=== PATIENT | male | born 1970 | race African-American/Black ===

== ENCOUNTER 2019-01-28 08:42 | Emergency (ER) | payer MEDICAID ==
[2019-01-28] MEDS ORDERED: ASPIRIN 81 MG TABLET, CHEWABLE PO ONE (08:57)
--- NOTE | 2019-01-28 09:19 | RADIOLOGY REPORT (SQ) ---
EXAM DESCRIPTION: CHEST SINGLE VIEW COMPLETED DATE/TIME: 01/28/2019 9:09 am REASON FOR STUDY: cp COMPARISON: 08/24/2014 EXAM PARAMETERS: NUMBER OF VIEWS: One view. TECHNIQUE: Single frontal radiographic view of the chest acquired. RADIATION DOSE: NA LIMITATIONS: None. FINDINGS: LUNGS AND PLEURA: No opacities, masses or pneumothorax. No pleural effusion. MEDIASTINUM AND HILAR STRUCTURES: No masses. Contour normal. HEART AND VASCULAR STRUCTURES: Heart normal in size. Normal vasculature. BONES: No acute findings. HARDWARE: None in the chest. OTHER: No other significant finding. IMPRESSION: NO ACUTE RADIOGRAPHIC FINDING IN THE CHEST. TECHNICAL DOCUMENTATION: JOB ID: [id number] [employer]- All Rights Reserved Reading location - IP/workstation name: [email or web address]
[2019-01-28 09:25] LABS: ABSOLUTE BASOPHILS # (AUTO) 0.1 10^3/uL (0.0-0.2); ABSOLUTE EOSINOPHILS # (AUTO) 0.1 10^3/uL (0.0-0.6); ABSOLUTE LYMPHOCYTES (AUTO) 1.7 10^3/uL (0.5-4.7); ABSOLUTE MONOCYTES (AUTO) 0.7 10^3/uL (0.1-1.4); ABSOLUTE NEUT (AUTO) 3.2 10^3/uL (1.7-8.2); EOSINOPHILS % (AUTO) 1.2 % (0-6); HEMATOCRIT 44.3 % (37.9-51.0); HEMOGLOBIN 15.1 g/dL (13.5-17.0); LYMPHOCYTES % (AUTO) 29.9 % (13-45); MEAN CORPUSCULAR HEMOGLOBIN 32.8 pg (27.0-33.4); MEAN CORPUSCULAR HGB CONC 34.2 g/dL (32.0-36.0); MEAN CORPUSCULAR VOLUME 96 fl (80-97); MONOCYTES % (AUTO) 12.3 % (3-13); PLATELET COUNT 255 10^3/uL (150-450); RED BLOOD COUNT 4.61 10^6/uL (4.35-5.55); RED CELL DISTRIBUTION WIDTH 14.6 % (11.5-14.0); SEGMENTED NEUTROPHILS % (AUTO) 55.6 % (42-78); TOTAL CELLS COUNTED % (AUTO) 100 %; WHITE BLOOD COUNT 5.8 10^3/uL (4.0-10.5)
[2019-01-28 09:45] LABS: ALANINE AMINOTRANSFERASE 37 U/L (21-72); ALBUMIN 4.1 g/dL (3.5-5.0); ALKALINE PHOSPHATASE 103 U/L (38-126); ANION GAP 9 (5-19); ASPARTATE AMINO TRANSFERASE 50 U/L (17-59); BILIRUBIN,DIRECT 0.3 mg/dL (0.0-0.4); BILIRUBIN,TOTAL 0.3 mg/dL (0.2-1.3); BLOOD UREA NITROGEN 12 mg/dL (7-20); CALCIUM 9.7 mg/dL (8.4-10.2); CARBON DIOXIDE 22 mmol/L (22-30); CHLORIDE 110 mmol/L (98-107); CREATINE KINASE 489 U/L (55-170); GLUCOSE 79 mg/dL (75-110); POTASSIUM 4.6 mmol/L (3.6-5.0); SODIUM 141.4 mmol/L (137-145); TOTAL PROTEIN 7.5 g/dL (6.3-8.2)
[2019-01-28 09:57] LABS: CREATINE KINASE MB 1.81 ng/mL (<4.55)
[2019-01-28 09:58] LABS: TROPONIN I < 0.012 ng/mL
--- NOTE | 2019-01-28 10:09 | ER Document Report ---
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 Patient stated it started last night when he felt as if his heart was racing. He takes amiodarone and carvedilol. The patient did not take them until this morning before coming in. He stated he felt a flutter in his chest but no chest pain or shortness of breath no dizziness no diaphoresis no fever no chills. Complains of a fluttering in the chest. TRAVEL OUTSIDE OF THE [place] IN LAST 30 DAYS: No - Related Data Allergies/Adverse Reactions: No Known Allergies Allergy (Verified 01/28/19 08:47) Past Medical History - Social History Smoking Status: Unknown if Ever Smoked Family History: Reviewed & Not Pertinent Patient has suicidal ideation: No Patient has homicidal ideation: No Renal/ Medical History: Denies: Hx Peritoneal Dialysis Review of Systems - Review of Systems Constitutional: denies: Chills, Fever Cardiovascular: Palpitations. denies: Chest pain, Dyspnea Respiratory: denies: Hurts to breathe, Short of breath Neurological/Psychological: denies: Headaches -: Yes All other systems reviewed and negative Physical Exam - Vital signs Vitals: Temp 98.7 F 01/28/19 09:08 - Notes Notes: GENERAL_APPEARANCE: well_nourished, alert, cooperative, no_acute_distress, no_obvious_discomfort. VITALS: reviewed, see vital signs table. HEAD: no_swelling\tenderness on the head. EYES: conjunctiva_clear. NOSE: no_nasal_discharge. MOUTH: (-)decreased moisture. THROAT: no_tonsilar_inflammation, no_airway_obstruction. no_lymphadenopathy NECK: supple, no_neck_tenderness, (-)thyromegaly. BACK: no_back_tenderness. CHEST_WALL: no_chest_tenderness. LUNGS: no_wheezing, no_rales, no_rhonchi, (-)accessory muscle use, good air exchange bilateral. HEART: normal_rate, normal_rhythm, normal_S1, normal_S2, (-)S3, (-)S4, no_murmur, no_rub. ABDOMEN: normal_BS, soft, no_abd_tenderness, (-)guarding, (-)rebound, no_organomegaly, no_abd_masses. EXTREMITIES: good pulses in all_extremities, no_swelling\tenderness in the extremities, no_edema. SKIN: warm, dry, good_color, no_rash. MENTAL_STATUS: speech_clear, oriented_X_3, normal_affect, responds_appropriately to questions. Course - Re-evaluation Re-evalutation: 01/28/19 10:07 Patient has a history of WPW and comes in complaining of palpitations. Patient's heart rate has been in the 80s here. We have been watching him on the monitor. Twelve-lead EKG has been in the 80s his playground monitor for several hours have been in the 80s. He took his carvedilol and amiodarone this morning before he came in. Likely this will continue to stabilize this. He has had no runs of any tachyarrhythmia. His work appears been negative. I think he is safe for discharge home. Complaining of chest pain consistent with ischemic chest pain he is complaining of palpitations and was concerned about rapid heart rate due to his history. - Vital Signs Vital signs: Temp Pulse Resp BP Pulse Ox 98.7 F 01/28/19 09:08 - Laboratory Result Diagrams: 01/28/19 09:00 01/28/19 09:00 Laboratory results interpreted by ny: 01/28/19 01/28/19 09:00 09:00 RDW 14.6 H Chloride 110 H Creatine Kinase 489 H - Diagnostic Test Radiology reviewed: Reports reviewed Radiology results interpreted by ny: 01/28/19 10:07 Chest X-Ray 01/28/19 08:57 IMPRESSION: NO ACUTE RADIOGRAPHIC FINDING IN THE CHEST. - EKG Interpretation by Tn EKG shows normal: Sinus rhythm Rate: Normal - Rate of 80s Rhythm: NSR When compared to previous EKG there are: No significant change Discharge - Discharge Clinical Impression: Palpitations, WPW (Gadrs-Uezgjnxsq-Trrtz syndrome) Condition: Good Disposition: HOME, SELF-CARE Instructions: Palpitations (Irregular or Rapid Heartrate) (OM) Additional Instructions: Please follow-up with your doctor [facility]
[2019-01-28 10:28] VITALS: BP 134/91
--- NOTE | 2019-01-28 16:19 | EKG REPORT ---
SEVERITY:- ABNORMAL ECG - SINUS RHYTHM VENT PREEXCITATION, LEFT ACCESSORY PATHWAY : Confirmed by: Javier Wade MD 28-Jan-2019 16:19:14
== END 2019-01-28 10:29 | disposition home or self-care (01) ==
LOC: ER 08:42
DX: R00.2 Palpitations (principal); I45.6 Pre-excitation syndrome; R07.9 Chest pain, unspecified
CPT/HCPCS: 36415; 71045; 80053; 82550; 82553; 84484; 85025; 93005; 93010; 99285